=== PATIENT | male | born 1970 | race Caucasian/White ===

== ENCOUNTER 2019-12-08 15:39 | Inpatient (IN) | payer OTHER ==
[~2019-12-08] VITALS: Ht 182.9 cm; Wt 119.1 kg
[2019-12-08] MEDS ORDERED: ACETAMINOPHEN 500 MG TABLET PO ONE (15:50)
[2019-12-08] MEDS ORDERED: ONDANSETRON PF 4 MG/2 ML VIAL. ONE (16:11)
[2019-12-08] MEDS: IV NORMAL SALINE 1,000ML 2,340 ML IV SCH ×8 (16:15→23:15)
[2019-12-08 16:44] LABS: BASO % 0 % (0-3); EOS % 0 % (0-3); HEMATOCRIT 49.8 % (39.0-53.0); LYMPH # 1.1 x10^3/uL (1.0-4.8); LYMPH % 30 % (24-48); MEAN CORPUSCULAR HEMOGLOBIN 30 pg (25-35); MEAN CORPUSCULAR HGB CONC 34 g/dL (31-37); MEAN CORPUSCULAR VOLUME 89 fL (79-100); MONO # 0.5 x10^3/uL (0.0-1.1); MONO % 13 % (0-9); NEUT # 2.1 x10^3uL (1.8-7.7); NEUT % 57 % (31-73); PLATELET COUNT 120 x10^3/uL (140-400); RED BLOOD COUNT 5.59 x10^6/uL (4.30-5.70); RED CELL DISTRIBUTION WIDTH 13.2 % (11.5-14.5); WHITE BLOOD COUNT 3.8 x10^3/uL (4.0-11.0)
[2019-12-08 16:45] LABS: CALCIUM 8.6 mg/dL (8.5-10.1); CREATININE 1.3 mg/dL (0.7-1.3); GFR 59.2; POTASSIUM 3.7 mmol/L (3.5-5.1)
--- NOTE | 2019-12-08 16:51 | RAD ---
CHEST AP ONLY History: Fever, cough Comparison: None. Findings: Single view of the chest is submitted. There is no dependent pleural fluid or pneumothorax. Heart size is within normal limits given technique. No lobar infiltrate is identified by radiograph. There may be walled bronchus in the right infrahilar region, also mild right base reticular opacity. Impression: 1. No lobar infiltrate is identified by radiograph. There is possible thick walled right infrahilar bronchus, no previous exams to evaluate for change. Electronically signed by: Mike Davey MD (12/08/2019 4:48 PM) [facility]
--- NOTE | 2019-12-08 16:56 | PHYS DOC ---
Past History Past Medical History: No Pertinent History Past Surgical History: No Surgical History Alcohol Use: None General Adult EDM: Chief Complaint: FEVER HPI: HPI: 49-year-old male presents the emergency room with 8-day history of cough, congestion fatigue and body cramps. Patient is also feeling more short of breath over the last 2 days and decided come the emergency room. He does not have any confirmed COVID-19 exposures, but realizes he has many of the symptoms. [place]. He has had a fever up to 102 at home and can get it to go down with Tylenol today.. He has a fever on arrival to the emergency room. His last Tylenol dose was 3 AM, over 12 hours ago. Review of Systems: Review of Systems: Constitutional: Fever and chills Eyes: Denies change in visual acuity HENT: Nasal congestion Respiratory: Cough with shortness of breath Cardiovascular: Denies chest pain or edema GI: Denies abdominal pain, nausea, vomiting, bloody stools or diarrhea : Denies dysuria Musculoskeletal: Denies back pain or joint pain Integument: Denies rash Neurologic: Denies headache, focal weakness or sensory changes Endocrine: Denies polyuria or polydipsia Lymphatic: Denies swollen glands Psychiatric: Denies depression or anxiety Heart Score: Risk Factors: Risk Factors: DM, Current or recent (<one month) smoker, HTN, HLP, family history of CAD, obesity. Risk Scores: Score 0 - 3: 2.5% MACE over next 6 weeks - Discharge Home Score 4 - 6: 20.3% MACE over next 6 weeks - Admit for Clinical Observation Score 7 - 10: 72.7% MACE over next 6 weeks - Early Invasive Strategies Current Medications: Current Meds: Current Medications Medications (Trade) Dose Ordered Sig/Karyn Start Time Stop Time Status Last Admin Dose Admin Acetaminophen (Tylenol) 500 mg STK-MED ONCE 12/08/19 15:50 12/08/19 15:51 DC Ondansetron HCl (Zofran) 4 mg STK-MED ONCE 12/08/19 16:11 12/08/19 16:11 DC Sodium Chloride 2,340 ml @ 2,340 mls/hr Q1H 12/08/19 16:15 Allergies: Allergies: Allergies Coded Allergies Type Severity Reaction Last Updated Verified iodine Allergy Unknown 12/08/19 Yes Physical Exam: PE: Constitutional: Well developed, well nourished, mild acute distress. [] HENT: Normocephalic, atraumatic, bilateral external ears normal, oropharynx moist, no oral exudates, nose normal. [] Eyes: PERRLA, EOMI, conjunctiva normal, no discharge. [] Neck: Normal range of motion, no tenderness, supple, no stridor. [] Cardiovascular:Heart rate 130, regular rhythm, no murmur [] Lungs & Thorax: Bilateral breath sounds clear to auscultation [] Abdomen: Bowel sounds normal, soft, no tenderness, no masses, no pulsatile masses. [] Skin: Warm, dry, no erythema, no rash. [] Back: No tenderness, no CVA tenderness. [] Extremities: No tenderness, no cyanosis, no clubbing, ROM intact, no edema. [] Neurologic: Alert and oriented X 3, normal motor function, normal sensory function, no focal deficits noted. [] Psychologic: Affect normal, judgement normal, mood concerned. [] Current Patient Data: Labs: Laboratory Tests Test 12/08/19 16:05 White Blood Count 3.8 x10^3/uL (4.0-11.0) L Red Blood Count 5.59 x10^6/uL (4.30-5.70) Hemoglobin 17.0 g/dL (13.0-17.5) Hematocrit 49.8 % (39.0-53.0) Mean Corpuscular Volume 89 fL (79-100) Mean Corpuscular Hemoglobin 30 pg (25-35) Mean Corpuscular Hemoglobin Concent 34 g/dL (31-37) Red Cell Distribution Width 13.2 % (11.5-14.5) Platelet Count 120 x10^3/uL (140-400) L Neutrophils (%) (Auto) 57 % (31-73) Lymphocytes (%) (Auto) 30 % (24-48) Monocytes (%) (Auto) 13 % (0-9) H Eosinophils (%) (Auto) 0 % (0-3) Basophils (%) (Auto) 0 % (0-3) Neutrophils # (Auto) 2.1 x10^3uL (1.8-7.7) Lymphocytes # (Auto) 1.1 x10^3/uL (1.0-4.8) Monocytes # (Auto) 0.5 x10^3/uL (0.0-1.1) Eosinophils # (Auto) 0.0 x10^3/uL (0.0-0.7) Basophils # (Auto) 0.0 x10^3/uL (0.0-0.2) Sodium Level 137 mmol/L (136-145) Potassium Level 3.7 mmol/L (3.5-5.1) Chloride Level 100 mmol/L (98-107) Carbon Dioxide Level 27 mmol/L (21-32) Anion Gap 10 (6-14) Blood Urea Nitrogen 12 mg/dL (8-26) Creatinine 1.3 mg/dL (0.7-1.3) Estimated GFR (Cockcroft-Gault) 59.2 BUN/Creatinine Ratio 9 (6-20) Glucose Level 95 mg/dL (70-99) Calcium Level 8.6 mg/dL (8.5-10.1) Total Bilirubin Pending Aspartate Amino Transferase (AST) Pending Alanine Aminotransferase (ALT) Pending Alkaline Phosphatase Pending Total Protein Pending Albumin Pending Albumin/Globulin Ratio Pending Group A Streptococcus Rapid Negative (NEGATIVE) Vital Signs: Vital Signs Date Time Temp Pulse Resp B/P (MAP) Pulse Ox O2 Delivery O2 Flow Rate FiO2 12/08/19 16:35 101.0 129 26 159/101 (120) 92 EKG: EKG: [] Radiology/Procedures: Radiology/Procedures: [] Impressions: CHEST AP ONLY History: Fever, cough Comparison: None. Findings: Single view of the chest is submitted. There is no dependent pleural fluid or pneumothorax. Heart size is within normal limits given technique. No lobar infiltrate is identified by radiograph. There may be walled bronchus in the right infrahilar region, also mild right base reticular opacity. Impression: 1. No lobar infiltrate is identified by radiograph. There is possible thick walled right infrahilar bronchus, no previous exams to evaluate for change. Electronically signed by: Yemi Pryor MD (12/08/2019 4:48 PM) [facility] DICTATED AND SIGNED BY: YEMI PRYOR MD DATE: 12/08/19 [id number] CC: CHARLES ARMENDARIZ DO; PCP,NO ~ Course & Med Decision Making: Course & Med Decision Making Pertinent Labs and Imaging studies reviewed. (See chart for details) The patient's labs are unremarkable except for a slightly low white count of 3.8. His chest x-ray is negative for obvious pneumonia, but he does have a prominent right bronchus. The patient's symptoms are pointing toward COVID-19 diagnosis. Given his fever, elevated heart rate, and hypoxia, he meets sepsis criteria. We have given him 30 mL/kg of ideal body weight. I will also cover him with Rocephin. I spoke with Dr. Chapman about the patient and he has accepted him for admission. He has requested we order a CT of the chest prior to setting the patient up to the hospital. I have ordered this. 51 minutes critical care time was spent on this patient exclusive of other billable procedures. [] Dragon Disclaimer: Dragon Disclaimer: This electronic medical record was generated, in whole or in part, using a voice recognition dictation system. Departure Departure: Impression: Primary Impression: Suspected COVID-19 virus infection Additional Impressions: Fever Tachycardia Hypoxia Disposition: ADMITTED INPT THIS HOSP Admitting Physician: Belem Chapman Condition: GUARDED Referrals: PCP,MOHSEN (PCP) CHARLES ARMENDARIZ DO Dec 08, 2019 16:56
[2019-12-08 16:57] LABS: INFLUENZA A PATIENT NEGATIVE (NEGATIVE); INFLUENZA B PATIENT NEGATIVE (NEGATIVE)
[2019-12-08 16:59] LABS: ALBUMIN 3.8 g/dL (3.4-5.0); ALBUMIN/GLOBULIN RATIO 1.4 (1.0-1.7); TOTAL BILIRUBIN 0.7 mg/dL (0.2-1.0); TOTAL PROTEIN 6.6 g/dL (6.4-8.2)
[2019-12-08] MEDS ORDERED: cefTRIAXone SODIUM 1 GM VIAL ONE (17:31)
[2019-12-08] MEDS ORDERED: IV NORMAL SALINE 50ML 50 ML ONE (17:31)
--- NOTE | 2019-12-08 19:16 | RAD ---
CT CHEST WO CONTRAST History: Fever. Hypoxia. Technique: Noncontrast CT of the chest was performed. Coronal and sagittal reconstructions were performed. Exposure: One or more of the following individualized dose reduction techniques were utilized for this examination: 1. Automated exposure control 2. Adjustment of the mA and/or kV according to patient size 3. Use of iterative reconstruction technique. Comparison: None Findings: Chest: No pathologic lymphadenopathy. Mild bilateral peripheral groundglass opacities involving all of the lobes. Several regions demonstrate somewhat nodular appearance. No pleural effusion. No pneumothorax. Left lower lobe pleural-based 6 mm nodule (series 2 image 69). Additional foci of nodular appearing groundglass opacities. Upper abdomen: Hepatic steatosis. Bones: No pathologic osseous lesions. Impression: 1. Bilateral peripheral groundglass opacities, can be seen with pneumonia including viral pneumonia. Recommend follow-up to ensure resolution. 2. Small left lower lobe pulmonary nodule. Recommend attention on follow-up. 3. Hepatic steatosis. Electronically signed by: Carlos Wynn DO (12/08/2019 7:13 PM) [facility]
[2019-12-08 21:00] VITALS: BP 136/98
[2019-12-08 22:00] VITALS: BP 121/96
--- NOTE | 2019-12-08 22:25 | NUR ---
The patient, EDITH FORD, 49 y/o, M admitted by YAHAIRA SILVEIRA MD, was given written information regarding hospital policies, unit procedures and contact persons. Health history and home medications were reviewed with patient. Bed locked and in lowest position, call light within reach. Valuables were checked and left in room.
[2019-12-08 23:00] VITALS: BP 133/89
[2019-12-09] VITALS (19 sets, daily range): BP systolic 107–149; BP diastolic 68–110
[2019-12-09] MEDS: IV NORMAL SALINE 1,000ML 2,340 ML IV SCH (00:15)
[2019-12-09] MEDS ORDERED: FLU VACC QS 2020-21(6MOS+)/PF 0.5 ML SYRINGE. VAX IM ONE (09:00)
--- NOTE | 2019-12-09 15:36 | HP ---
ADMIT DATE: 12/08/2019 HISTORY OF PRESENT ILLNESS: The patient is a 49-year-old male patient, who came to the Emergency Room with complaint of cough, congestion, fatigue and body cramps. 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 He has fever up to 102 at home and can get it to go down with Tylenol. He had fever on arrival to the Emergency Room. He was extensively evaluated in the Emergency Room. His lab work showed a white cell count of 3800 and his chemistry showed slightly elevated liver enzymes and his coronavirus by PCR was detectable; however, his influenza A, B and streptococcus rapid test was negative. He was admitted and was started on ceftriaxone and Tylenol. PAST MEDICAL HISTORY: Unremarkable. SOCIAL HISTORY: Unremarkable. ALLERGIES: He has no known drug allergies, except TO IODINE. MEDICATIONS: He is currently on no medication by prescription or [id number]. FAMILY HISTORY: His father is actually in hospice for pancreatic cancer. Mother in her late 40s because of bone cancer. He has 2 sisters and 1 brother, older and healthy. SOCIAL HISTORY: He is , has a daughter and a son. He does not smoke, drink alcohol or use recreational drugs. 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 REVIEW OF SYSTEMS: The patient denied any blurring of vision, cataract, glaucoma or macular degeneration. Denied any earache, tinnitus or sensorineural deafness. Denied any nosebleeds, stuffy nose or postnasal drip. Denied any sore throat, sore tongue, toothache, hoarseness of voice or difficulty swallowing. Did complain of nausea, but no vomiting. Has diarrhea, no constipation. Denied any dysuria, frequency or hematuria. Did complain of chest pain and shortness of breath. Cough is mostly dry. PHYSICAL EXAMINATION: GENERAL: On arrival to the Emergency Room, he looked well and was clearly in no apparent respiratory distress. No pallor, jaundice, cyanosis or thyromegaly. No jugular venous distention. No lower limb edema. VITAL SIGNS: His heart rate was 129, blood pressure was 159/101, temperature was 101, respiratory rate was 26 and oxygen saturation was 92%. HEAD, EYES, EARS, NOSE AND THROAT: Showed normocephalic, atraumatic. NECK: Supple. HEART: Showed normal first and second heart sounds. No gallop, rub or murmur. CHEST: Clear to auscultation. No crepitation or rhonchi. ABDOMEN: Distended, soft, nontender. No guarding or rigidity. No organomegaly. All hernial orifice intact. Bowel sounds normal. NEUROLOGIC: He was awake, alert, responding appropriately. All his cranial nerves are intact. EXTREMITIES: He moves extremities without difficulty, ambulates without assistance or assistive devices. PSYCHOLOGICAL: His affect, judgment and mood were normal. LABORATORY DATA: His lab work on arrival showed white cell count of 3800, hemoglobin 17, hematocrit 49, MCV 89 and platelet count of 120,000. Serum sodium was 137, potassium 3.7, chloride 100, bicarbonate 27, anion gap of 10, BUN 12, creatinine 1.3, estimated GFR was 59 mL per minute, his glucose was 95, calcium was 8.6. Lactic acid was 1. Total bilirubin and alkaline phosphatase were normal. AST, ALT slightly elevated. Total protein 6.6, albumin was 3.8 and his influenza A and B as well as group A streptococcus rapid test were negative. His coronavirus PCR was detectable. His chest x-ray showed no lobar infiltrate identified by radiographs and there is possible thick-walled right infrahilar bronchus. No previous exam to evaluate for change. He had, had a CT angio of the chest, which showed that the patient has no pathological lymphadenopathy. Mild bilateral peripheral ground glass opacities involving all the lobes. Several regions demonstrate somewhat nodular appearance. No pleural effusion, no pneumothorax. Left lower lobe pleural space, 6 mm nodule. Additional foci of nodular-appearing ground glass opacities, upper abdomen, hepatic steatosis and the bone showed no pathological osseous lesion. ASSESSMENT AND PLAN: The patient was admitted with COVID-19 pneumonia and acute hypoxic respiratory failure. We will start him on dexamethasone 6 mg daily and if his symptoms worsen, we might have to start also remdesivir and convalescent plasma. YAHAIRA SILVEIRA MD DR: HILARIO/alba JOB#: [id number] / [id number]
--- NOTE | 2019-12-09 15:58 | PN ---
DATE: 12/09/2019 SUBJECTIVE: The patient is resting, slightly propped up in bed, no apparent distress, awake, alert. On questioning him, he continued to have some cough and also had diarrhea. He is afebrile today. PHYSICAL EXAMINATION: GENERAL: When I examined him, he looked well and was clearly in no apparent respiratory distress. No pallor, jaundice, cyanosis or thyromegaly. No jugular venous distension. No limb edema. VITAL SIGNS: His heart rate was 95, blood pressure was 123/90, temperature was 98, respiratory rate was 25, and oxygen saturation was 92% on 2 liters of oxygen. HEAD, EYES, EARS, NOSE AND THROAT: Showed normocephalic, atraumatic. NECK: Supple. HEART: Showed normal first and second heart sounds. No gallop or murmur. CHEST: Clear to auscultation. No crepitation or rhonchi. ABDOMEN: Distended, soft, nontender. NEUROLOGIC: He was grossly intact. LABORATORY DATA: He has no lab work done this morning. ASSESSMENT: 1. COVID-19 pneumonia. 2. Acute hypoxic respiratory failure. 3. Thrombocytopenia. 4. Deranged liver enzymes. PLAN: I added dexamethasone as well as will add Lovenox and continue to monitor him closely and if his oxygen requirements start to worsen, we will start him on remdesivir and convalescent plasma. YAHAIRA SILVEIRA MD DR: HILARIO/alba JOB#: [id number] / [id number]
[2019-12-09] MEDS ORDERED: ACETAMINOPHEN 325 MG TABLET PO PRN (16:00)
[2019-12-09] MEDS ORDERED: ONDANSETRON PF 4 MG/2 ML VIAL. IVP PRN (16:00)
[2019-12-09] MEDS: DEXAMETHASONE SOD PHOS 4 MG/ML VIAL. IVP SCH (16:31)
[2019-12-09] MEDS: AZITHROMYCIN 250 MG TABLET. PO SCH (16:31)
[2019-12-10] VITALS: BP 120/84
[2019-12-10 04:00] VITALS: BP 125/85
[2019-12-10 05:42] LABS: HEMATOCRIT 47.6 % (39.0-53.0); HEMOGLOBIN 16.2 g/dL (13.0-17.5); RED BLOOD COUNT 5.34 x10^6/uL (4.30-5.70); WHITE BLOOD COUNT 3.6 x10^3/uL (4.0-11.0)
[2019-12-10 05:57] LABS: ALBUMIN 3.2 g/dL (3.4-5.0); ALBUMIN/GLOBULIN RATIO 0.9 (1.0-1.7); CALCIUM 8.5 mg/dL (8.5-10.1); GFR 80.1; POTASSIUM 4.1 mmol/L (3.5-5.1); TOTAL BILIRUBIN 0.6 mg/dL (0.2-1.0); TOTAL PROTEIN 6.6 g/dL (6.4-8.2)
--- NOTE | 2019-12-10 06:03 | NUR ---
Pt rested through night, afebrile. Denies any further nausea since zofran admin at supper time. Pt remains on 2L O2 via NC, sats 90-93% overnight. Pt's called 3x this shift to check on pt status. reports pt's father from pancreatic cancer this morning and is requesting to visit pt today. Notified nursing sup, pending approval.
[2019-12-10] MEDS: AZITHROMYCIN 250 MG TABLET. PO SCH (07:59)
[2019-12-10] MEDS: DEXAMETHASONE SOD PHOS 4 MG/ML VIAL. IVP SCH (07:59)
[2019-12-10] MEDS ORDERED: LACTOBACILLUS RHAMNOSUS GG 1 CAPSULE. PO SCH (09:00)
[2019-12-10] MEDS ORDERED: ENOXAPARIN 30 MG/0.3 ML SYRINGE. SQ SCH (09:30)
--- NOTE | 2019-12-10 09:44 | NUR ---
IP: patient test + COVID-19, requires contact and airborne precautions.
--- NOTE | 2019-12-10 10:26 | DS ---
DATE OF DISCHARGE: 12/10/2019 ATTENDING PHYSICIANS: Dr. Chapman and Dr. Linton. FINAL DISCHARGE DIAGNOSES: 1. Atypical pneumonia. 2. COVID-19 coronavirus pneumonia. 3. Hypoxemic respiratory failure, improved. HISTORY AND PHYSICAL: This is a 49-year-old gentleman admitted through the ED with fevers, cough and congestion. He had a positive swab for COVID-19 coronavirus. He was admitted for supplemental oxygen and treatment. PHYSICAL EXAMINATION: Please see the dictated note. PERTINENT LABORATORY AND X-RAY STUDIES: CT of the chest demonstrated bilateral peripheral ground glass opacities consistent with a viral pneumonia, very small left lower lobe pulmonary nodule. Recommended followup. He also had hepatic steatosis. LABORATORY STUDIES: On admission, his hemoglobin was 17.0 g/dL with white count of 3800 consistent with viral pneumonia. Electrolytes within normal range. Nonfasting blood sugar 95, creatinine is 1.3 mg/dL. Cardiac enzymes are negative for coronary ischemia. COURSE IN THE HOSPITAL: The patient was started on empiric Decadron, anticoagulation with Lovenox and I added some Pepcid. He did well. Supplemental oxygen was discontinued. He was doing well when I saw him on the day of discharge. Vital signs were stable. His lungs were clear. He was moving air well. He had a recent in the family. His father yesterday, but was expected. Therefore, he is discharged home. I recommended 7 more days of Decadron 6 mg p.o. daily, zinc 220 mg daily and Pepcid 20 mg daily. I suggested a followup visit with his primary care physician. He understands about isolation at home for the next 14 days. He has been doing that already. Therefore, on the third hospital day, the patient was then discharged from the hospital in stable condition with explicit instructions and followup care. RENEA LINTON MD DR: NIA/alba JOB#: [id number] / [id number]
--- NOTE | 2019-12-10 10:45 | NUR ---
PATIENT IS DISCHARGED HOME WITH SELF CARE. PATIENT IS STABLE AT TIME OF DISCHARGE. PATIENTS IV IS REMOVED TELE MONITOR D/C'D. PATENT IS GIVEN PRESCRIPTIONS FOR DEXAMETHASONE, PEPCID, AND ZINC OXIDE. PATIENT IS ESCORTED OFF OF UNIT ACCOMPANIED BY STAFF.
== END 2019-12-10 10:54 | disposition home or self-care (01) | DRG 177 ==
LOC: ER 15:39 → ICU 19:48
PROVIDERS: ADMIT Internal Medicine; ATTEND Hospitalist
DX: U07.1 COVID-19 (principal); J12.89 Other viral pneumonia; J96.01 Acute respiratory failure with hypoxia; D69.6 Thrombocytopenia, unspecified; Z80.0 Family history of malignant neoplasm of digestive organs; Z91.041 Radiographic dye allergy status
CPT/HCPCS: 36415; 71045; 71250; 80053; 83605; 84484; 85025; 85027; 85379; 86140; 87040; 87070; 87804; 87880; 96365; J0456; J0696; J1100; J1650; J2405; 99291-25; J7030; U0003-CS

== ENCOUNTER 2020-01-24 03:43 | Emergency (ER) | payer OTHER ==
[~2020-01-24] VITALS: Ht 182.9 cm; Wt 122.7 kg
--- NOTE | 2020-01-24 04:14 | PHYS DOC ---
Past History Past Medical History: No Pertinent History Past Surgical History: No Surgical History Alcohol Use: None General Adult EDM: Chief Complaint: CHEST PAIN HPI: HPI: Patient is a 49-year-old male coming in for right upper anterior chest pain that started about 8 hours ago. Sisters noticed pain when he was sitting watching TV and thought maybe he just pulled a muscle. Is coming in now because the pain is getting more constant and stronger. Also states he feels like he cannot take a deep breath. Pain is not worse with palpation. No pain in the left. He denies any cough, fevers, vomiting, diarrhea. Patient is a history significant for hospitalization about 6 weeks ago for COVID-19 where he spent 3 days in the ICU. Was on oxygen but was never on BiPAP or intubated. Patient states he never felt like he fully recovered. Denies any tobacco, drug, alcohol use. Denies any past medical history or lung disease. Denies any personal or family history of blood clots. Patient is noted to have oxygen saturation of 90 to 91% on room air. Patient states he has a reaction to contrast iodine when he has intense vomiting, has happened twice. Second time was pretreated with antiemetics but still was vomiting. Review of Systems: Review of Systems: Constitutional: Denies fever or chills Eyes: Denies change in visual acuity HENT: Denies nasal congestion or sore throat Respiratory: Denies cough or shortness of breath Cardiovascular: Denies chest pain or edema GI: Denies abdominal pain, nausea, vomiting, bloody stools or diarrhea : Denies dysuria Musculoskeletal: Denies back pain or joint pain Integument: Denies rash Neurologic: Denies headache, focal weakness or sensory changes Endocrine: Denies polyuria or polydipsia Lymphatic: Denies swollen glands Psychiatric: Denies depression or anxiety Allergies: Allergies: Allergies Coded Allergies Type Severity Reaction Last Updated Verified iodine Allergy Unknown 12/08/19 Yes Physical Exam: PE: Constitutional: Well developed, well nourished, no acute distress, non-toxic appearance. [] HENT: Normocephalic, atraumatic, bilateral external ears normal, oropharynx moist, no oral exudates, nose normal. [] Eyes: PERRLA, EOMI, conjunctiva normal, no discharge. [] Neck: Normal range of motion, no tenderness, supple, no stridor. [] Cardiovascular:Heart rate regular rhythm, no murmur [] Lungs & Thorax: Bilateral breath sounds clear to auscultation [] Abdomen: Bowel sounds normal, soft, no tenderness, no masses, no pulsatile masses. [] Skin: Warm, dry, no erythema, no rash. [] Back: No tenderness, no CVA tenderness. [] Extremities: No tenderness, no cyanosis, no clubbing, ROM intact, no edema. [] Neurologic: Alert and oriented X 3, normal motor function, normal sensory function, no focal deficits noted. [] Psychologic: Affect normal, judgement normal, mood normal. [] Current Patient Data: Vital Signs: Vital Signs Date Time Temp Pulse Resp B/P (MAP) Pulse Ox O2 Delivery O2 Flow Rate FiO2 01/24/20 03:53 97.4 97 18 122/55 (77) 94 Room Air EKG: EKG: Normal sinus rhythm, heart rate 97 beats per minutes, left axis deviation, no ST elevation or depression, no ectopy [] Radiology/Procedures: Radiology/Procedures: EXAMINATION: CHEST PA LATERAL CLINICAL HISTORY: Right upper chest pain EXAM DATE/TIME: 01/24/2020 4:05 AM COMPARISON: 12/08/2019 FINDINGS: Lines, Tubes, and Devices: None. Cardiomediastinal Silhouette: Normal heart size. Aortic atherosclerotic calcification. Lungs and Pleura: Pulmonary hypoexpansion with mild to moderate right pneumothorax. No midline shift. Bilateral perihilar patchy opacities. No pleural effusion. Bones and Soft Tissues: Degenerative changes of the thoracic spine. IMPRESSION: Pulmonary hypoexpansion with mild/moderate right pneumothorax and bilateral patchy airspace disease. [] Heart Score: Risk Factors: Risk Factors: DM, Current or recent (<one month) smoker, HTN, HLP, family history of CAD, obesity. Risk Scores: Score 0 - 3: 2.5% MACE over next 6 weeks - Discharge Home Score 4 - 6: 20.3% MACE over next 6 weeks - Admit for Clinical Observation Score 7 - 10: 72.7% MACE over next 6 weeks - Early Invasive Strategies Course & Med Decision Making: Course & Med Decision Making Pertinent Labs and Imaging studies reviewed. (See chart for details) Mild pneumothorax, scapular to apex about 1.5 cm. Vital signs are stable. Placed on 15 L nonrebreather. Lungs appear to be scarred, likely secondary pneumothorax. Will need to be transferred for pulmonology consult. Patient initially was agreeable to going to [place], after speaking with requested [facility]. Consult with her transfer team to [facility] has no beds available. Patient is now amenable to going to [place]. [] Nael Disclaimer: Nael Disclaimer: This electronic medical record was generated, in whole or in part, using a voice recognition dictation system. Departure Departure: Impression: Primary Impression: Pneumothorax, right Disposition: 02 DC/TRF OTHER SHORT TERM HOS Condition: GUARDED Referrals: SHIRA BARRAZA MD (PCP) Scripts No Active Prescriptions or Reported Meds CINDA VEGA MD Jan 24, 2020 04:14
--- NOTE | 2020-01-24 04:38 | RAD ---
EXAMINATION: CHEST PA LATERAL CLINICAL HISTORY: Right upper chest pain EXAM DATE/TIME: 01/24/2020 4:05 AM COMPARISON: 12/08/2019 FINDINGS: Lines, Tubes, and Devices: None. Cardiomediastinal Silhouette: Normal heart size. Aortic atherosclerotic calcification. Lungs and Pleura: Pulmonary hypoexpansion with mild to moderate right pneumothorax. No midline shift. Bilateral perihilar patchy opacities. No pleural effusion. Bones and Soft Tissues: Degenerative changes of the thoracic spine. IMPRESSION: Pulmonary hypoexpansion with mild/moderate right pneumothorax and bilateral patchy airspace disease. Critical findings discussed with CINDA VEGA at 01/24/2020 4:29 AM. Electronically signed by: Dilip Arias DO (01/24/2020 4:34 AM) [facility]
[2020-01-24 04:39] LABS: CALCIUM 8.9 mg/dL (8.5-10.1); CREATININE 1.2 mg/dL (0.7-1.3); GFR 64.9; POTASSIUM 4.1 mmol/L (3.5-5.1)
--- NOTE | 2020-01-24 04:45 | EKG ---
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
[2020-01-24 04:46] LABS: BASO # 0.1 x10^3/uL (0.0-0.2); BASO % 1 % (0-3); EOS # 0.2 x10^3/uL (0.0-0.7); EOS % 2 % (0-3); HEMATOCRIT 49.4 % (39.0-53.0); HEMOGLOBIN 16.4 g/dL (13.0-17.5); LYMPH # 2.4 x10^3/uL (1.0-4.8); LYMPH % 23 % (24-48); MEAN CORPUSCULAR HEMOGLOBIN 31 pg (25-35); MEAN CORPUSCULAR HGB CONC 33 g/dL (31-37); MEAN CORPUSCULAR VOLUME 92 fL (79-100); MONO % 10 % (0-9); NEUT # 6.9 x10^3uL (1.8-7.7); NEUT % 66 % (31-73); PLATELET COUNT 204 x10^3/uL (140-400); RED BLOOD COUNT 5.37 x10^6/uL (4.30-5.70); WHITE BLOOD COUNT 10.5 x10^3/uL (4.0-11.0)
[2020-01-24 04:52] LABS: ALBUMIN 3.8 g/dL (3.4-5.0); ALBUMIN/GLOBULIN RATIO 1.3 (1.0-1.7); TOTAL PROTEIN 6.8 g/dL (6.4-8.2)
[2020-01-24 05:46] VITALS: BP 135/67
== END 2020-01-24 08:12 | disposition short-term general hospital (02) ==
LOC: ER 03:43
DX: J93.9 Pneumothorax, unspecified (principal); Z88.8 Allergy status to other drugs, medicaments and biological substances
CPT/HCPCS: 36415; 71046; 80053; 83880; 84484; 85025; 85379; 93005; 99285

== ENCOUNTER → 2020-02-03 | Outpatient (CLI) | payer OTHER ==
[2020-01-24 05:46] VITALS: BP 135/67
--- NOTE | 2020-02-03 15:48 | RAD ---
Exam: Chest 2 views INDICATION: Follow-up collapsed right lung TECHNIQUE: Frontal and lateral views of the chest Comparisons: 01/24/2020 FINDINGS: The cardiomediastinal silhouette and pulmonary vessels are within normal limits. Rounded opacity at the right midlung, may represent loculated pleural effusion. Subtle patchy bibasilar airspace disease. IMPRESSION: 1. Subtle patchy right basilar airspace disease. 2. Rounded opacity at the right midlung, may represent loculated pleural effusion. This would be better evaluated with CT. Electronically signed by: Berta Coy MD (02/03/2020 3:45 PM) ROSANGELA
== END ==
LOC: DXRAD 15:10
PROVIDERS: ATTEND Family Medicine
DX: R91.8 Other nonspecific abnormal finding of lung field (principal); J98.19 Other pulmonary collapse; R09.02 Hypoxemia
CPT/HCPCS: 71046

== ENCOUNTER → 2020-03-15 | Outpatient (CLI) | payer OTHER ==
--- NOTE | 2020-03-15 15:02 | RAD ---
EXAM: Chest, 2 views. HISTORY: Lung collapse. COMPARISON: 02/03/2020 FINDINGS: A frontal view of the chest obtained. There is a stable circumscribed masslike opacity with in the posterior right mid to lower thorax. There is suspected bilateral lower lobe atelectasis or in terstitial infiltrate There is no convincing pleural effusion. There is no pneumothorax. The heart is normal in size. IMPRESSION: 1. Stable circumscribed nodular opacity within the posterior right mid lower thorax, possibly due to fluid loculated within a pleural fissure given the absence of solid mass in this location on a study performed 01/24/2020. This can be better assessed with a CT. 2. Stable suspected bilateral lower lobe atelectasis or interstitial infiltrate. Electronically signed by: Evangelina Lee MD (03/15/2020 2:59 PM) [id number]
== END ==
LOC: DXRAD 14:38
PROVIDERS: ATTEND Family Medicine
DX: J90 Pleural effusion, not elsewhere classified (principal); J98.19 Other pulmonary collapse; J98.4 Other disorders of lung
CPT/HCPCS: 71046